=== PATIENT | female | born 1930 | race Caucasian/White ===

== ENCOUNTER 2019-09-20 08:37 | Day surgery (SDC) | payer OTHER ==
[2019-09-15 11:25] VITALS: BMI 27.1
[2019-09-20] MEDS ORDERED: PROPOFOL 20 ML ONE ×2 (09:00)
[2019-09-20 12:14] VITALS: PULSE 70; TEMP 98.2
[2019-09-20 12:20] VITALS: BP 122/69
--- NOTE | 2019-09-22 14:56 | PATH ---
Surgical Pathology Report Patient Name: WENDY WHITAKER [facility]. Rec. #: [id number] /Age/Gender: 1930 (Age: 89) / F Account: [id number] Location: [facility] Taken: 09/20/2019 Received: 09/20/2019 Reported: 09/22/2019 Physicians: Isacc Munoz M.D. Specimen(s) Received A: HOT SNARE POLYPECTOMY TRANSVERSE COLON B: RANDOM SIGMOID COLON Clinical History Rectal bleed Postoperative diagnosis: Colon polyp, diverticulosis, hematochezia, colitis Final Diagnosis A. TRANSVERSE COLON, HOT SNARE POLYPECTOMY: SEVERE CHRONIC ACTIVE COLITIS WITH PROMINENT CRYPTITIS AND CRYPT ABSCESSES. NEGATIVE FOR DYSPLASIA. B. SIGMOID, RANDOM, BIOPSY: MODERATE CHRONIC ACTIVE COLITIS WITH PROMINENT REACTIVE LYMPHOID AGGREGATES. NEGATIVE FOR DYSPLASIA. Electronically Signed Karen Durán M.D. Gross Description A. Received in formalin, labeled "hot snared polypectomy transverse colon" are 2 christiansen, irregular portions of soft tissue averaging 0.3 cm. in greatest dimension. The specimens are submitted in toto in one cassette. B. Received in formalin, labeled "biopsy random sigmoid" are 2 christiansen, irregular portions of soft tissue measuring 0.1 and 0.3 cm. in greatest dimension. The specimens are submitted in toto in one cassette. /09/20/2019 saudi09/20/2019
== END 2019-09-20 10:30 | disposition home or self-care (01) ==
LOC: FASU-ENDO 08:37
PROVIDERS: ATTEND Internal Medicine Gastroenterology
PROC: 0DBN8ZX Excision of Sigmoid Colon, Via Natural or Artificial Opening Endoscopic, Diagnostic (ICD-10-PCS; 2019-09-20)
PROC: 0DBL8ZX Excision of Transverse Colon, Via Natural or Artificial Opening Endoscopic, Diagnostic (ICD-10-PCS; principal; 2019-09-20 09:18)
DX: K92.1 Melena (principal); K52.89 Other specified noninfective gastroenteritis and colitis; K57.30 Diverticulosis of large intestine without perforation or abscess without bleeding; K64.8 Other hemorrhoids; K64.4 Residual hemorrhoidal skin tags; K63.89 Other specified diseases of intestine
CPT/HCPCS: 88305-TC

== ENCOUNTER 2019-12-02 05:11 | Day surgery (SDC) | payer OTHER ==
[2019-12-01 08:35] VITALS: BMI 28.2
--- OUTSIDE RECORDS SUMMARY | 2019-12-02 05:14 | XMS ---
:1930 [facility] Care Team Providers Name Role Phone MD He Unavailable Unavailable Re-disclosure Warning The records that you are about to access may contain information from federally- assisted alcohol or drug abuse programs. If such information is present, then the following federally mandated warning applies: This information has been disclosed to you from records protected by federal confidentiality rules (42 CFR part 2). The federal rules prohibit you from making any further disclosure of this information unless further disclosure is expressly permitted by the written consent of the person to whom it pertains or as otherwise permitted by 42 CFR part 2. A general authorization for the release of medical or other information is NOT sufficient for this purpose. The Federal rules restrict any use of the information to criminally investigate or prosecute any alcohol or drug abuse patient.The records that you are about to access may contain highly sensitive health information, the redisclosure of which is protected by Article 27-F of the [facility] Public Health law. If you continue you may haveaccess to information: Regarding HIV / AIDS; Provided by facilities licensed or operated by the [facility] Office of Mental Health; or Provided by the [facility] Office for People With Developmental Disabilities. If such information is present, then the following [facility] mandated warning applies: This information has been disclosed to you from confidential records which are protected by state law. State law prohibits you from making any further disclosure of this information without the specific written consent of the person to whom it pertains, or as otherwise permitted by law. Any unauthorized further disclosure in violation of state law may result in a fine or long term sentence or both. A general authorization for the release of medical or other information is NOT sufficient authorization for further disclosure. Allergies and Adverse Reactions Type Description Substance Reaction Status Data Source(s ) Drug allergy No Known Allergies No Known Allergies [facility] Encounters Encounter Providers Location Date Indications Data Source(s ) P Attender: Silvia 08/29/2019 [facility] Whit e Gale Cutler MD 10:15:00 AM [facility] EDT [facility] Insurance Providers Payer name Policy type Policy ID Covered Covered democrat's Policy P haley / Coverage democrat ID relationship to Garcia Inf ormation type garcia [facility] [id number] SP [id number] HEALTHCARE (MEDICARE) [facility] [id number] PT [id number] HEALTHCARE MCR Results ID Date Data Source [id number] 11/28/2019 04:44:00 PM EDT [facility] Name Value Range Interpretation Description Data Sup porting Code Source(s) Document(s ) SARS [facility] coronavirus 2 RNA This lab was ordered by [facility] and reported by [facility]. ID Date Data Source [id number] 09/16/2019 10:50:00 AM EDT [facility] Name Value Range Interpretation Description Data Sup porting Code Source(s) Document(s ) SARS [facility] CORONAVIRUS 2 RNA This lab was ordered by [facility] and reported by [facility]. Procedure
[2019-12-02 11:49] VITALS: TEMP 963.9
[2019-12-02 12:50] VITALS: BP 142/57; PULSE 63
--- NOTE | 2019-12-06 12:48 | PATH ---
Surgical Pathology Report Patient Name: ROCIO WHITAKER [facility]. Rec. #: [id number] /Age/Gender: 1930 (Age: 89) / F Account: [id number] Location: [facility] Taken: 12/02/2019 Received: 12/02/2019 Reported: 12/06/2019 Physicians: Isacc Munoz M.D. Specimen(s) Received A: DUODENUM B: STOMACH C: POLYP STOMACH Clinical History Anemia Postoperative diagnosis: Gastric polyp, large hiatal hernia Final Diagnosis A. DUODENAL, BIOPSY: DUODENAL MUCOSA WITH NO SIGNIFICANT PATHOLOGIC CHANGE. NO HISTOLOGIC EVIDENCE OF INTRAEPITHELIAL LYMPHOCYTOSIS. B. STOMACH, BIOPSY: ONE FRAGMENT OF FUNDIC GLAND POLYP. SEPARATE ONE FRAGMENT OF GASTRIC MUCOSA WITH CHRONIC GASTRITIS. IMMUNOSTAIN FOR H. PYLORI IS NEGATIVE. NEGATIVE FOR INTESTINAL METAPLASIA. C. STOMACH POLYP, BIOPSY: GASTRIC MUCOSA WITH CHRONIC GASTRITIS. IMMUNOSTAIN FOR H. PYLORI IS NEGATIVE. NEGATIVE FOR INTESTINAL METAPLASIA. SEE COMMENT. Comment: Multiple serial sections of H&E stained slides have been reviewed. Electronically Signed Wilfredo Perkins M.D. Gross Description A. Received in formalin, labeled "duodenum" are 2 portions of christiansen, irregular soft tissue measuring 0.1 and 0.3 cm. in greatest dimension. The specimen is submitted in toto in one cassette. B. Received in formalin, labeled "stomach" are 2 portions of christiansen soft tissue measuring 0.2 and 0.3 cm. in greatest dimension. The specimen is submitted in toto in one cassette. C. Received in formalin, labeled "polyp stomach" is a christiansen, irregular soft tissue measuring 0.3 cm. in greatest dimension. The specimen is submitted in toto in one cassette. __ KWS/12/02/2019 sulki/12/02/2019
== END 2019-12-02 12:40 | disposition home or self-care (01) ==
LOC: JASU-ENDO 05:11
PROVIDERS: ATTEND Internal Medicine Gastroenterology
PROC: 0DB68ZX Excision of Stomach, Via Natural or Artificial Opening Endoscopic, Diagnostic (ICD-10-PCS; 2019-12-02)
PROC: 0DB98ZX Excision of Duodenum, Via Natural or Artificial Opening Endoscopic, Diagnostic (ICD-10-PCS; principal; 2019-12-02 11:30)
DX: D64.9 Anemia, unspecified (principal); K31.7 Polyp of stomach and duodenum; K44.9 Diaphragmatic hernia without obstruction or gangrene; K29.50 Unspecified chronic gastritis without bleeding
CPT/HCPCS: 88305-TC; 88342-TC